=== PATIENT | male | born 1970 | race Caucasian/White ===

== ENCOUNTER 2023-03-02 12:30 | Emergency (ER) | payer BC, SELFPAY ==
[2023-03-02] VITALS (13 sets, daily range): BP systolic 113–123; BP diastolic 83–86; PULSE 68–123; RESP 20; TEMP 36.8; O2SAT 92–96; BMI 34.0
--- NOTE | 2023-03-02 13:53 | ED.GENADULT ---
HPI - General Adult General Time Seen by Provider: 13:53 Date Seen: 03/02/23 Chief complaint: Lower Extremity Swelling Stated complaint: Cellulitis, not responding to antibiotics Time Seen by Provider: 03/02/23 13:40 History of Present Illness HPI narrative: Corby is a 53-year-old male past medical history includes MRSA, hypertension, presents emerged department via private car with with left knee pain. Patient states he had an injury about 2 weeks ago, he went to [facility] on 02/21, he had a cortisone injection to his left knee, patient had no improvement with his symptoms, pain worsened on 02/23 as well as swelling, there was some redness to the area, he went back to [facility] last Monday, concerns for developing cellulitis from previous injection, patient was given IM Rocephin and sent home on Keflex, per patient the swelling is still present, redness has improved, patient's pain has not improved, he is taking oxycodone with minimal relief, he is unable to bear weight on that knee, patient denies any fevers or chills. At his visit at [facility] they never thought it was joint involved. Due to worsening symptoms patient presents emerged department. Related Data Home Medications Medication Instructions Recorded Confirmed albuterol sulfate 90 mcg/actuation inhalation 03/03/23 03/03/23 aerosol inhaler chlorthalidone 50 mg tablet mg PO 03/03/23 03/03/23 losartan 50 mg tablet 50 mg PO DAILY 03/03/23 03/03/23 meloxicam 15 mg tablet 15 mg PO DAILY 03/03/23 03/03/23 pravastatin 20 mg tablet 20 mg PO DAILY 03/03/23 03/03/23 trazodone 50 mg tablet 100 mg PO QPM PRN 03/03/23 03/03/23 Previous Rx's Medication Instructions Recorded doxycycline monohydrate 100 mg 100 mg PO BID #14 caps 03/02/23 capsule indomethacin 50 mg capsule 50 mg PO TID #45 caps 03/03/23 Allergies Allergy/AdvReac Type Severity Reaction Status Date / Time lisinopril AdvReac Severe Uncoded 03/03/23 09:48 Review of Systems Status of ROS: Reports: 10 or more systems reviewed and unremarkable except as noted in History and below [facility] Medical History (Updated 03/17/23 @ 00:01 by Background Daemon) Arthritis ?M19.90 - Unspecified osteoarthritis, unspecified site (ICD-10) Hypertension ?I10 - Essential (primary) hypertension (ICD-10) Sleep apnea treated with continuous positive airway pressure (CPAP) ?G47.30 - Sleep apnea, unspecified (ICD-10) Chronic neck and back pain ?M54.2 - Cervicalgia (ICD-10) ?M54.9 - Dorsalgia, unspecified (ICD-10) ?G89.29 - Other chronic pain (ICD-10) Social History Smoking Status: Never smoker Do you use any of these nicotine containing products: None Second hand tobacco smoke exposure: No How often do you have a drink containing alcohol: never How often do you have six or more drinks on one occasion: Never AUDIT-C Alcohol total score: 0 Non-prescribed substance use: denies use service: No Exam Narrative: Exam Narrative: General: Mild distress, lying comfortably HEENT: Pupils equal round reactive to light, extraocular muscles intact Lungs: Clear to auscultation bilaterally Heart: Normal sinus rhythm, S1-S2 Muscle skeletal: Left knee: Moderate suprapatellar effusion, no surrounding erythema, no warmth, minimal active extension and flexion, improved passive extension and flexion, CMS intact. Neuro: Alert awake and oriented x3 Const: Vital Signs, click to edit/add: Vital Signs - 24 hr 03/02/23 12:43 03/02/23 14:18 03/02/23 14:30 Temperature 98.3 F Pulse Rate 103 H 102 H Pulse Rate [Right Pulse Oximeter] 123 H Respiratory Rate 20 Blood Pressure Blood Pressure [Ri ght Upper Arm] 113/83 Pulse Oximetry 95 92 92 Oxygen Delivery Me thod Room Air 03/02/23 14:31 03/02/23 15:07 Temperature Pulse Rate 106 H 102 H Pulse Rate [Right Pulse Oximeter] Respiratory Rate Blood Pressure 123/86 Blood Pressure [Ri ght Upper Arm] Pulse Oximetry 92 92 Oxygen Delivery Me thod Course Course ED Course: 2:00 PM: AIDEt performed. Vitals show tachycardia, patient is afebrile, workup will include IV peripheral, 15 mg IV Toradol, 4 mg IV morphine for pain, will obtain CBC, CRP, CMP, lactate and blood cultures x2, as patient does have range of motion, he erythema has improved, seems less likely septic arthritis, may reach out to Orthopedics. Differential diagnosis include, septic arthritis, suprapatellar cellulitis, cellulitis, ligament injury, knee fusion, fracture, dislocation, as well as sprain. 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 CBC did show a leukocytosis, neutrophil # 9.2, CRP mildly elevated at 6.9, lactate normal at 1.5, blood cultures pending, metabolic panel showed sodium of 134, potassium 3.3, blood glucose 125, mildly elevated LFTs. Time of Reevaluation #2: 16:25 Reevaluation #2: Imaging: MPRESSION: 1. Anterior soft tissue swelling and trace knee joint effusion. 2. Degenerative changes of the knee with chondrocalcinosis. 3. Linear calcific densities along the superior patellar margin of uncertain chronicity. Appointment was made for orthopedics [place] tomorrow morning at 9:30 a.m.. Patient to be discharged with addition of doxycycline 100 mg b.i.d. over the next 7 days. Vital Signs Vital signs: Initial Vital Signs Temperature 98.3 F 03/02/23 12:43 Temperature Source Temporal Artery Scan 03/02/23 12:43 Pulse Rate 123 H 03/02/23 12:43 Pulse Rhythm Regular 03/02/23 12:43 Pulse Strength 3+ Normal 03/02/23 12:43 Respiratory Rate 20 03/02/23 12:43 Blood Pressure 113/83 03/02/23 12:43 Blood Pressure Mean 93 03/02/23 12:43 Blood Pressure Position Sitting 03/02/23 12:43 Pulse Oximetry 95 03/02/23 12:43 Oxygen Delivery Method Room Air 03/02/23 12:43 Vital Signs Temperature 98.3 F 03/02/23 12:43 Pulse Rate 123 H 03/02/23 12:43 Respiratory Rate 20 03/02/23 12:43 Blood Pressure 113/83 03/02/23 12:43 Pulse Oximetry 95 03/02/23 12:43 Oxygen Delivery Method Room Air 03/02/23 12:43 Temperature 98.3 F 03/02/23 12:43 Pulse Rate 68 03/02/23 18:00 Respiratory Rate 20 03/02/23 12:43 Blood Pressure 123/86 03/02/23 14:31 Pulse Oximetry 96 03/02/23 18:00 Oxygen Delivery Method Room Air 03/02/23 12:43 Medical Decision Making Lab Data Labs: Lab Results 03/02/23 Range/Units 14:05 WBC 12.89 H (4.50-11.00) K/uL RBC 5.69 (4.30-5.90) m/uL Hgb 15.8 (13.5-17.5) gm/dL Hct 47.5 (37.0-53.0) % MCV 84 (80-100) fL MCH 28 (26-34) pg MCHC 33 (32-36) gm/dL RDW Coeff of Dean 13.1 (11.5-15.5) % Plt Count 226 (140-440) K/uL Neut % (Auto) 71.1 (42.0-72.0) % Lymph % (Auto) 15.1 L (20-44) % [place] % (Auto) 12.2 H (0.0-11.0) % Eos % (Auto) 0.9 (0.0-7.0) % Baso % (Auto) 0.2 (0.0-3.0) % Neut # (Auto) 9.20 H (1.7-7.0) K/uL Lymph # (Auto) 1.90 (0.90-2.90) K/uL [place] # (Auto) 1.60 H (0.00-0.90) K/UL Eos # (Auto) 0.10 (0.00-0.50) K/uL Baso # (Auto) 0.00 (0.00-0.30) K/uL Abs Immat Gran (auto) 0.10 (0.00-0.30) K/uL Imm/Tot Granulo (auto) 0.5 % Sodium 134 L (135-149) mmol/L Potassium 3.3 L (3.6-5.1) mmol/L Chloride 93 L (96-114) mmol/L Carbon Dioxide 30 (20-32) mmol/L Anion Gap 11 (7-15) mEq/L BUN 19 (7-30) mg/dL Creatinine 0.7 (0.5-1.5) mg/dL Estimated Creat Clear 126.99 Estimated GFR 109 ml/min Glucose 125 H (60-115) mg/dL Lactate 1.5 (0.5-1.9) mmol/L Calcium 10.3 (8.4-10.6) mg/dL Total Bilirubin 1.2 (0.1-1.5) mg/dL AST 36 H (12-35) U/L ALT 61 H (4-50) U/L Alkaline Phosphatase 51 (40-150) U/L C-Reactive Protein 6.9 H (0.5-1.0) mg/dL Total Protein 8.1 (6.0-8.3) g/dL Albumin 4.5 (3.3-5.0) g/dL Discharge Plan Discharge Clinical Impression: Cellulitis of knee, left Patient Disposition: Home, Self-Care Condition: Improved Instructions: Cellulitis (ED) Additional Instructions: Add doxycycline 100 mg twice daily for the next 7 days, to follow up with Orthopedics tomorrow at 9:30 am. Return if worsening symptoms. Activity Level: Activity as Tolerated Discharge Diet: Regular Prescriptions: New doxycycline monohydrate 100 mg capsule 100 mg PO BID Qty: 14 0RF No Action losartan 50 mg tablet 50 mg PO DAILY meloxicam 15 mg tablet 15 mg PO DAILY trazodone 50 mg tablet 100 mg PO QPM PRN albuterol sulfate 90 mcg/actuation HFA aerosol inhaler inhalation pravastatin 20 mg tablet 20 mg PO DAILY chlorthalidone 50 mg tablet PO indomethacin 50 mg capsule 50 mg PO TID Qty: 45 0RF Rx Instructions: administer with food or milk Take for no more than 7-14 days Follow Up/Referrals: Provider,Not a Local [Primary Care Provider] - Stand Alone Forms: [employer] Info Instructions
[2023-03-02] MEDS: KETOROLAC 15 MG/ML inj IVP (14:10)
[2023-03-02] MEDS: MORPHINE 4 MG/ML INJ IVP (14:10)
[2023-03-02 14:20] LABS: Lactate* 1.5 mmol/L (0.5-1.9)
[2023-03-02 14:22] LABS: Basophils Percent Auto 0.2 % (0.0-3.0); Eosinophils Percent Auto 0.9 % (0.0-7.0); Hematocrit 47.5 % (37.0-53.0); Hemoglobin* 15.8 gm/dL (13.5-17.5); Immature Granulocytes Pct Auto 0.5 %; Lymphocytes Percent Auto 15.1 % (20-44); Mean Corpuscular HGB Conc 33 gm/dL (32-36); Mean Corpuscular Hemoglobin 28 pg (26-34); Mean Corpuscular Volume 84 fL (80-100); Monocytes Percent Auto 12.2 % (0.0-11.0); Neutrophils Percent Auto 71.1 % (42.0-72.0); Platelet Count* 226 K/uL (140-440); RDW Coefficient of Variation % 13.1 % (11.5-15.5); Red Blood Count 5.69 m/uL (4.30-5.90); White Blood Count* 12.89 K/uL (4.50-11.00)
[2023-03-02 14:24] LABS: Slide Review Reflex No
--- NOTE | 2023-03-02 14:29 | CRLHL7_ITS ---
For Patients: As a result of the Century Cures Act, medical imaging exams and procedure reports are released immediately into your electronic medical record. You may view this report before your referring provider. If you have questions, please contact your health care provider. INDICATION: Suprapatellar effusion, history of injection, pain. TECHNIQUE: Left knee 3 views. COMPARISON: None. FINDINGS: No acute fracture or dislocation. Mild medial compartment narrowing. Chondrocalcinosis in the medial and lateral compartments. Tricompartmental spurring. Linear calcific densities along the superior patellar margin of uncertain chronicity. Trace knee joint effusion. Anterior soft tissue swelling. IMPRESSION: 1. Anterior soft tissue swelling and trace knee joint effusion. 2. Degenerative changes of the knee with chondrocalcinosis. 3. Linear calcific densities along the superior patellar margin of uncertain chronicity. Dictated by Rut Cummings MD @ 03/02/2023 4:07:11 PM (Electronically Signed)
[2023-03-02 14:36] LABS: Albumin* 4.5 g/dL (3.3-5.0); Chloride* 93 mmol/L (96-114)
[2023-03-02 14:37] LABS: Potassium* 3.3 mmol/L (3.6-5.1); Sodium* 134 mmol/L (135-149)
[2023-03-02 14:39] LABS: Alkaline Phosphatase* 51 U/L (40-150); Anion Gap 11 mEq/L (7-15); Aspartate Amino Transferase* 36 U/L (12-35); Bilirubin Total* 1.2 mg/dL (0.1-1.5); Carbon Dioxide* 30 mmol/L (20-32); Creatinine* 0.7 mg/dL (0.5-1.5); Est. Creatinine Clearance* 126.99; Estimated Glomerular Filt Rate 109 ml/min; Total Protein* 8.1 g/dL (6.0-8.3)
[2023-03-02 14:40] LABS: Alanine Aminotransferase* 61 U/L (4-50); Blood Urea Nitrogen* 19 mg/dL (7-30); Calcium* 10.3 mg/dL (8.4-10.6); Glucose* 125 mg/dL (60-115)
[2023-03-02 14:42] LABS: C Reactive Protein* 6.9 mg/dL (0.5-1.0)
[2023-03-02] MEDS: DOXYCYCLINE HYCLATE 100 MG in 0.9 % SODIUM CHLORIDE Mini-bag 100 ML IVPB (16:18)
[2023-03-02] MEDS: 0.9 % SODIUM CHLORIDE 1000 ml 1,000 ML 1200 ML IV (17:18)
== END 2023-03-02 18:14 | disposition home or self-care (01) ==
PROVIDERS: Emergency Provider Student in an Organized Health Care Education/Training Program
DX: L03.116 Cellulitis of left lower limb (principal)
CPT/HCPCS: 36415; 73564; 80053; 83605; 85025; 86140; 87040; 96365; 96375; 99283; 99284; J1885; J2270; J7030

== ENCOUNTER 2023-03-03 11:16 | Outpatient (CLI) | payer BC, SELFPAY ==
[2023-03-03 13:45] LABS: Mononuclear WBC Body Fluid* 24 %; Polynuclear WBC Body Fluid* 76 %; RBC, Body Fluid* 17000 Cells/uL; WBC, Body Fluid* 9395 Cells/uL
[2023-03-03 13:50] LABS: BF Clarity* Cloudy; BF Color Blood Tinged; BF Total Volume* 10
== END 2023-03-03 11:17 | disposition home or self-care (01) ==
PROVIDERS: Visit Provider Physician Assistant
DX: L03.116 Cellulitis of left lower limb (principal)
CPT/HCPCS: 87070; 87075; 87205; 89051; 89060

== ENCOUNTER 2025-03-05 20:41 | Emergency (ER) | payer BC, SELFPAY ==
--- OUTSIDE RECORDS SUMMARY | 2025-03-05 20:43 | XMS_ITS | Clinical Summary ---
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 [facility] Allerg[facility] Active Allergy Reactions Criticality Noted Date Comments Bee Venom Edema,generalized 03/18/2015 Lisinopril Cough 03/26/2015 Medications ALBUterol sulfate HFA 108 (90 Base) MCG/ACT inhaler 2 Puffs every 4 hours as needed. 10/12/19 22 Active chlorthalidone (HYGROTON) 50 MG tablet Take by mouth. 07/26/19 22 Active Coenzyme Q10 30 MG capsule Take 1 Capsule (30 mg) by mouth. Active EPINEPHrine (EPIPEN) 0.3 MG/0.3ML injection Inject 0.3 mL (0.3 mg) intramuscularly at bedtime as needed. 07/26/19 22 Active losartan (COZAAR) 25 MG tablet Take 1 Tablet (25 mg) by mouth daily. 11/18/19 22 Active pravastatin (PRAVACHOL) 20 MG tablet Take 1 Tablet (20 mg) by mouth daily as needed. 11/18/19 22 Active traZODone (DESYREL) 50 MG tablet Take by mouth. 07/26/19 Active Meloxicam (MOBIC) 15 MG tabletIndicati ons:Arthralgia of right ankle TAKE 1 TABLET(15 MG) BY MOUTH DAILY 45 Tablet 01/24/20 Active oxyCODONE (ROXICODONE) 5 MG immediate release tablet Take 1 Tablet (5 mg) by mouth every 8 hours as needed for Pain. 10 Tablet 02/29/20 Active Active Problems Problem Noted Date Diagnosed Date Post-traumatic osteoarthritis of right shoulder 01/08/2022 History of repair of right rotator cuff 01/09/20 Complete tear of right rotator cuff 01/08/2022 Social History Tobacco Use Types Packs/Day Years Used Date Smoking Tobacco: Never Smokeless Tobacco: Never Tobacco Cessation:Counseling Given: Not Answered Sex and Gender Information Value Date Recorded Sex Assigned at Not on file Legal Sex Male 7:01 AM CDT Gender Identity Not on file Sexual Orientation Not on file Last Filed Vital Signs Vital Sign Reading Time Taken Comments Blood Pressure - - Pulse - - Temperature 35.8 C (96.4 F) 02/28/2023 9:12 AM CDT Respiratory Rate - - Oxygen Saturation - - Inhaled Oxygen Concentration - - Weight 117.5 kg (259 lb) 02/21/2023 4:29 PM CDT Height 180.3 cm (5' 11) 02/21/2023 4:29 PM CDT Body Mass Index 36.12 02/21/2023 4:29 PM CDT Plan of Treatment Health Maintenance Due Date Last Done Comments Colon Cancer Screening Plan Due 1968 Hep C Screening (Preventive Services) 1968 PSA Screening Discussion 1968 IPV (Polio) Vaccine (2 of 3 - 4-dose series) 04/10/1980 03/13/1980, 03/13/1980 HIV Screening (Preventive Services) 1984 Adult Preventive Visit 01/05/1986 HepB Vaccine (1) 01/05/1987 Cholesterol 01/05/2003 Pneumococcal Vaccine 50+ Yrs (1 of 1 - PCV) 01/05/2018 COVID-19 Vaccine (5 - 2024- season) 2025 03/21/2022, 06/03/2021, 09/25/2020, Additional history exists Influenza Vaccine (#1) 2025 1, 05/28/2020, 07/19/2018, Additional history exists DTaP/Tdap/Td Vaccine (4 - Tdap) 11/30/2030 11/30/2020, 05/18/2010, 06/19/2003 HepA Vaccine Aged Out 06/03/2016, 11/2015, 06/10/2015, Additional history exists No longer eligible based on patient's age to complete this topic Zoster/Shingles Vaccine Completed 05/28/2020, 02/02 Hib Vaccine Aged Out No longer eligi ble based on patient's age to complete this topic MCV4 Vaccine Aged Out No longer eligi ble based on patient's age to complete this topic Meningococcal B Vaccine Aged Out No l onger eligible based on patient's age to complete this topic Insurance [facility] Care Teams Grain Roaster Relationship Specialty Start Date End Date Unassigned, Provider [address] [place] [address] PCP - General 03/20/00
--- OUTSIDE RECORDS SUMMARY | 2025-03-05 20:43 | XMS_ITS | Clinical Summary ---
Author Organization [email or web address] Address [address] [place] [id number] Care Team Providers Care Manager Of Development Name Role Phone Rut Murdock MD Primary Care Provider [phone] Allergies Active Allergy Reactions Criticality Noted Date Comments Lisinopril Cough 03/26/2015 Venom-Honey Bee Edema 03/18/2015 Medications cholecalcifero l 400 unit tablet Take 10 mcg by mouth once daily. Active aspirin 81 mg enteric coated tablet Take 81 mg by mouth two times daily. 3 Active coenzyme q10 30 mg capsule Take 30 mg by mouth once daily. Active zinc gluconate 50 mg tablet Take 50 mg by mouth WITH BREAKFAST. Active traZODone 50 mg tabletIndicati ons:Insomnia, idiopathic Take 0.5-1 Tablets (25-50 mg) by mouth at bedtime if needed for Sleep. 90 Tablet 3 5 Active pravastatin 20 mg tabletIndicati ons:HTN (hypertension) Take 1 Tablet (20 mg) by mouth at bedtime. 90 Tablet 3 5 Active meloxicam 15 mg tabletIndicati ons:Pseudogout Take 1 Tablet (15 mg) by mouth once daily. 90 Tablet 3 5 Active losartan 50 mg tabletIndicati ons:HTN (hypertension) Take 1 Tablet (50 mg) by mouth once daily. 90 Tablet 3 5 Active EPINEPHrine 0.3 mg/0.3 mL auto-injectorI ndications:Bee sting allergy Inject 0.3 mg intramuscular one time if needed for Allergic Reaction. 2 Each 5 Active colchicine 0.6 mg tabletIndicati ons:Pseudogout Take 1 Tablet (0.6 mg) by mouth two times daily. 180 Tablet 3 5 Active albuterol HFA 90 mcg/actuation inhalerIndicat ions:Bronchiti s Inhale 2 Puffs by mouth every 4 hours if needed for Wheezing. 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 0 12/20/2007 SPINAL STENOSIS subarticular right L4-5 12/20/19 08 Immunizations Immunization Administration Dates Next Due DT (Age < 7 years) 06/19/2003 HepA-HepB (Twinrix) 06/03/2016, 6,06/10/2015,2014 INFLUENZA, IIV3 PF (AGE >= 6 MO) 06/13/2024 Inactivated Polio Vaccine 03/13/1980 Influenza Virus, Unspecified 06/03/2016, 04/15/2008,04/11/2008,2005 Influenza, IIV3 (Age >=3 years) 04/11/2008,05/24 Influenza, IIV4 04/03/2023, 1,05/28/2020,2018,05/31/2017,06/03/2016 Pneumococcal Conj 20-valent (Prevnar 20) 06/13/2024 Polio Virus, Unspecified 03/13/1980 Tdap 11/30/2020,05/18/2010 Typhoid (injectable) 06/03/2015 Typhoid Parenteral,Killed 06/03/2015 Zoster (Shingrix-RZV, recombinant) 05/28/2020, Social History Tobacco Use Types Packs/Day Years Used Date Smoking Tobacco: Never Smokeless Tobacco: Never Tobacco Cessation:Counseling Given: Not Answered Alcohol Use Standard Drinks/Week Comments No 0 (1 standard drink = 0.6 oz pur e alcohol) PHQ-2 Answer Date Recorded PHQ-2 TOTAL SCORE 0 09/10/2024 Social Connections Answer Date Recorded Do you often feel lonely or isolated from those around you? 0 09/10/2024 Financial Resource Strain Answer Date R ecorded Difficulty of Paying Living Expenses 3 09/10/2024 Difficulty of Paying Living Expenses Not on file 09/10/2024 Food Insecurity Answer Date Recorded Do you worry your food will run out before you are able to buy more? 1 09/10/2024 Transportation Needs Answer Date Record ed Does lack of transportation keep you from medica l appointments? 1 09/10/2024 Does lack of transportation keep you from work, meetings or getting things that you need? 1 09/10/2024 Housing Stability Answer Date Recorded What is your housing situation today? 1 09/10/2024 Utilities Answer Date Recorded Do you have trouble paying f or utilities (for example, heat, electricity, water, phone)? 1 09/10/2024 Sex and Gender Information Value Date Recorded Sex Assigned at Not on file Legal Sex Male 6:13 AM [employer] Gender Identity Not on file Sexual Orientation Not on file Obstetrics History Last Filed Vital Signs Vital Sign Reading Time Taken Comments Blood Pressure 144/82 09/10/2024 9:17 AM CDT Pulse 80 09/10/2024 9:12 AM CDT Temperature 37.1 C (98.7 F) 02/03/2010 4:05 PM CDT Respiratory Rate 16 12/27/2007 8:00 AM CDT Oxygen Saturation 94% 12/27/2007 8:00 AM CDT Inhaled Oxygen Concentration - - Weight 105.2 kg (232 lb) 09/10/2024 9:12 AM CDT Height 177.8 cm (5' 10) 09/10/2024 9:12 AM CDT Body Mass Index 33.29 09/10/2024 9:12 AM CDT Plan of Treatment Health Maintenance Due Date Last Done Comments HIV for age 15-65 01/05/1983 Hepatitis C screening for ag e 18-79 01/05/1986 COVID-19 vaccine series ( season) 2025 03/21/2022, 06/03/2021, 09/25/2020, Additional history exists Influenza Vaccine (#1) 2025 , 04/03/2023, 06/03/2021, Additional history exists BMI (ht and wt on same day) for age 18+ 09/10/2025 09/10/2024 Depression screening for age 12+ 09/10/2025 09/11/19 Fecal testing sDNA-FIT ([place] guard) for age 45-75 09/21/2027 09/20/2024, 08/30/2021, 12/04/2018 Lipids for age 45-75 09/10/2029 09/10/2024 Tetanus booster 11/30/2030 11/30/2020, 05/18/2010 RSV vaccine for adults or (1 - 1-dose 75+ series) 01/05/2043 Hepatitis B series for 19+ Completed 06/03, 06/24/2015, 06/10/2015, Additional history exists Zoster (shingles) series for age 50+ Completed 05/28/2020, 02/03/2020 Pneumococcal series for age 50+ Completed Procedures Procedure Name Priority Date/Time Associated Diagnosis Comments SDNA-FIT EXTERNAL (COLOGUARD) Routine 09/20/2024 7:30 AM CDT Screening for colon cancer LIPID PANEL W REFLEX MEASURED LDL Routine 09/10/2024 10:16 AM CDT HTN (hypertension) Well adult exam from Last 3 Months or Most Recently Relevant to Health Maintenance Results * SDNA-FIT EXTERNAL (COLOGUARD) (09/20/2024 7:30 AM CDT) NONINV COLON CA DNA+OCC BLD SCRN STL-IMP Negative Negative 09/24/2024 4:25 AM CDT [facility] (CLIA #:[id number]) Comment: NEGATIVE TEST RESULT. A negative Cologuard result indicates a low likelihood that a colorectal cancer (CRC) or advanced adenoma (adenomatous polyps with more advanced pre-malignant features) is present. The chance that a person with a negative Cologuard test has a colorectal cancer is less than 1 in 1500 (negative predictive value >99.9%) or has an advanced adenoma is less than 5.3% (negative predictive value 94.7%). These data are based on a prospective cross-sectional study of 10,000 individuals at average risk for colorectal cancer who were screened with both Cologuard and colonoscopy. (Merced Lombardi al, N Engl J Med 2014;370(14):0753-5877) The normal value (reference range) for this assay is negative. COLOGUARD RE-SCREENING RECOMMENDATION: Periodic colorectal cancer screening is an important part of preventive healthcare for asymptomatic individuals at average risk for colorectal cancer. Following a negative Cologuard result, the [place] [employer] and U.S. Multi-Society Task Force screening guidelines recommend a Cologuard re-screening interval of 3 years. References: [place] [employer] Guideline for Colorectal Cancer Screening: https://www.cancer.org/cancer/jyfjm-bdfidq-rbfzzv/qcjwqhjkb-vmkaahyld-uvctlwr/ac s-rec ommendations.html.; Rajat LANDRY, Catarino SINHA, Ellie OseiK, Colorectal Cancer Screening: Recommendations for Physicians and Patients from the U.S. Multi-Society Task Force on Colorectal Cancer Screening , Am J Gastroenterology 2017; 112:9530-7504. TEST DESCRIPTION: Composite algorithmic analysis of stool DNA-biomarkers with hemoglobin immunoassay. Quantitative values of individual biomarkers are not reportable and are not associated with individual biomarker result reference ranges. Cologuard is intended for colorectal cancer screening of adults of either sex, 45 years or older, who are at average-risk for colorectal cancer (CRC). Cologuard has been approved for use by the U.S. FDA. The performance of Cologuard was established in a cross sectional study of average-risk adults aged 50-84. Cologuard performance in patients ages 45 to 49 years was estimated by sub-group analysis of near-age groups. Colonoscopies performed for a positive result may find as the most clinically significant lesion: colorectal cancer [4.0%], advanced adenoma (including sessile serrated polyps greater than or equal to 1cm diameter) [20%] or non- advanced adenoma [31%]; or no colorectal neoplasia [45%]. These estimates are derived from a prospective cross-sectional screening study of 10,000 individuals at average risk for colorectal cancer who were screened with both Cologuard and colonoscopy. (Merced Bai, N Engl J Med 2014;370(14):4729-4342.) Cologuard may produce a false negative or false positive result (no colorectal cancer or precancerous polyp present at colonoscopy follow up). A negative Cologuard test result does not guarantee the absence of CRC or advanced adenoma (pre-cancer). The current Cologuard screening interval is every 3 years. ([place] [employer] and U.S. Multi-Society Task Force). Cologuard performance data in a 10,000 patient pivotal study using colonoscopy as the reference method can be accessed at the following location: www.[employer]/results. Additional description of the Cologuard test process, warnings and precautions can be found at www.[employer]. Stool specimen (specimen) (Rectum) 09/20/2024 7:30 AM CDT 09/21/2024 10:13 AM CDT us Ronny Cervantes MD URINE Final R esult [facility] (CLIA #:[id number]) [address] [place] [address], * (ABNORMAL) LIPID PANEL W REFLEX MEASURED LDL (09/10/2024 10:16 AM CDT) CHOLESTEROL, TOTAL 194 <200 mg/dL [facility] HDL CHOLESTEROL 48 > OR = 40 mg/dL [facility] TRIGLYCERIDES 138 <150 mg/dL [facility] LDL-CHOLESTEROL 120(H) mg/dL (calc) [facility] Comment: Reference range: <100 Desirable range <100 mg/dL for primary prevention; <70 mg/dL for patients with CHD or diabetic patients with > or = 2 CHD risk factors. LDL-C is now calculated using the John calculation, which is a validated novel method providing better accuracy than the Friedewald equation in the estimation of LDL-C. Akira RUIZ et al. PATRICIA. 2013;310(19): 3430-2969 (http://education.[employer]/faq/BEL770) CHOL/HDLC RATIO 4.0 <5.0 (calc) [facility] NON HDL CHOLESTEROL 146(H) <130 mg/dL (calc) [facility] Comment: For patients with diabetes plus 1 major ASCVD risk factor, treating to a non-HDL-C goal of <100 mg/dL (LDL-C of <70 mg/dL) is considered a therapeutic option. Blood BLOOD SPECIMEN / Unknown 09/10/2024 10:16 AM CDT 09/10/2024 10:17 AM CDT us Ronny Cervantes MD CHEMISTRY Final R esult [employer] [facility] [address] [place] [address], [facility] [address] [place] [address] from Last 3 Months or Most Recently Relevant to Health Maintenance Insurance [facility] Advance Directives * Full Code (Latest Code Status on File) Date Activated Date Inactivated Comments 12/26/2007 9:58 AM 12/26/2007 5:03 PM Care Teams Manager Of Development Relationship Specialty Start Date End Date Rut Murdock MD PCP - General 12/04/07
[2025-03-05 20:45] VITALS: BP 171/90; PULSE 81; RESP 16; TEMP 36.7; O2SAT 98; BMI 30.5
[2025-03-05] MEDS: LIDOCAINE 1 % PF 30 ML INJECTION (21:20)
--- NOTE | 2025-03-05 21:20 | ED.WOUNDLAC ---
HPI - Wound/Laceration General Chief Complaint: Laceration/Wound Stated Complaint: leg injury due to chainsaw Time Seen by Provider: 03/05/25 21:18 History of Present Illness HPI narrative: This 55-year-old male comes in with a laceration on his left lower leg. He was using a chain saw of about 2 or 3 hours prior to arrival in the blade accidentally cut into his leg. He has a 6 cm linear laceration on the anterior lateral aspect of his lower leg about 10 cm above the ankle joint. His tetanus status is up-to-date. Related Data Home Medications ?Medication ?Instructions ?Recorded ?Confirmed albuterol sulfate 90 mcg/actuation inhalation 03/03/23 03/03/23 aerosol inhaler chlorthalidone 50 mg tablet mg PO 03/03/23 03/03/23 losartan 50 mg tablet 50 mg PO DAILY 03/03/23 03/05/25 meloxicam 15 mg tablet 15 mg PO DAILY 03/03/23 03/05/25 pravastatin 20 mg tablet 20 mg PO DAILY 03/03/23 03/05/25 trazodone 50 mg tablet 100 mg PO QPM PRN 03/03/23 03/05/25 colchicine 0.6 mg tablet mg PO 03/05/25 Previous Rx's ?Medication ?Instructions ?Recorded doxycycline monohydrate 100 mg 100 mg PO BID #14 caps 03/02/23 capsule indomethacin 50 mg capsule 50 mg PO TID #45 caps 03/03/23 Allergies Allergy/AdvReac Type Severity Reaction Status Date / Time bee vebom Allergy Uncoded 03/05/25 20:47 lisinopril AdvReac Severe Uncoded 03/03/23 09:48 Review of Systems Status of ROS: Reports: 10 or more systems reviewed and unremarkable except as noted in History and below Narrative: Constitutional: No fevers, no weight gain or loss. Eyes: No discharge. No vision changes. HENT: No congestion, no sore throat, no ear pain. Cardiovascular: No chest pain, no palpitations. Respiratory: No shortness of breath, no wheezes, no cough. Gastrointestinal: No abdominal pain, no vomiting, no diarrhea. Genitourinary: No dysuria, no hematuria. Musculoskeletal: Normal range of motion. Skin: No rashes, no pruritis. Neurological: No dizziness, weakness, sensory change, speech change. Endo/Heme/Allergies: No bruising or bleeding. No polydipsia. Pysch: no suicidality, no anxiety, no insomnia. All other systems reviewed and are negative. [facility] Medical History (Updated 03/05/25 @ 21:23 by Neymar Navarro MD) Arthritis ?M19.90 - Unspecified osteoarthritis, unspecified site (ICD-10) Hypertension ?I10 - Essential (primary) hypertension (ICD-10) Sleep apnea treated with continuous positive airway pressure (CPAP) ?G47.30 - Sleep apnea, unspecified (ICD-10) Chronic neck and back pain ?M54.2 - Cervicalgia (ICD-10) ?M54.9 - Dorsalgia, unspecified (ICD-10) ?G89.29 - Other chronic pain (ICD-10) Social History Smoking Status: Never smoker Do you use any of these nicotine containing products: None Second hand tobacco smoke exposure: No How often do you have a drink containing alcohol: never How often do you have six or more drinks on one occasion: Never AUDIT-C Alcohol total score: 0 Non-prescribed substance use: denies use service: No Exam Narrative: Exam Narrative: Constitutional: Well-developed, well-nourished, no acute distress. HEENT: Normocephalic, atraumatic. Neck: Normal range of motion. Nontender. Supple. Heart: Regular. No murmurs. Normal rate. Intact distal pulses. Lungs: Clear to auscultation. No chest discomfort. No wheezes, rhonchi, or rales. Abdomen: Normal bowel sounds. Nontender. No rebound tenderness. Genitalia: Deferred. Back: No midline tenderness. Normal range of motion. Extremities: Normal range of motion. 6 cm linear laceration on the left lower extremity as described above. Skin: Intact. No rash. Warm. No erythema or pallor. Neurologic: No altered sensation. No weakness. Alert and oriented. Psychiatric: No suicidality. No anxiety or depression. No insomnia. Nursing notes and vitals signs are reviewed. Const: Vital Signs, click to edit/add: Vital Signs - 24 hr 03/05/25 20:45 Temperature 98.0 F Pulse Rate [Pulse Oximeter] 81 Respiratory Rate 16 Blood Pressure [Le ft Upper Arm] 171/90 H Pulse Oximetry 98 Oxygen Delivery Me thod Room Air Course Vital Signs Vital signs: Initial Vital Signs Temperature 98.0 F 03/05/25 20:45 Temperature Source Temporal Artery Scan 03/05/25 20:45 Pulse Rate 81 03/05/25 20:45 Respiratory Rate 16 03/05/25 20:45 Blood Pressure 171/90 H 03/05/25 20:45 Blood Pressure Mean 117 H 03/05/25 20:45 Blood Pressure Position Sitting 03/05/25 20:45 Pulse Oximetry 98 03/05/25 20:45 Oxygen Delivery Method Room Air 03/05/25 20:45 Vital Signs Temperature 98.0 F 03/05/25 20:45 Pulse Rate 81 03/05/25 20:45 Respiratory Rate 16 03/05/25 20:45 Blood Pressure 171/90 H 03/05/25 20:45 Pulse Oximetry 98 03/05/25 20:45 Oxygen Delivery Method Room Air 03/05/25 20:45 Temperature 98.0 F 03/05/25 20:45 Pulse Rate 81 03/05/25 20:45 Respiratory Rate 16 03/05/25 20:45 Blood Pressure 171/90 H 03/05/25 20:45 Pulse Oximetry 98 03/05/25 20:45 Oxygen Delivery Method Room Air 03/05/25 20:45 MDM - Wound/Laceration MDM Narrative Medical decision making narrative: This patient has a laceration that would benefit from suture repair. After anesthesia with 1% lidocaine the wound was cleansed with normal saline. It was a also explored to its base. There is no tendon or ligament involvement. Wound edges were approximated and the wound was closed with 4.0 Ethilon sutures. Seven sutures were placed in interrupted fashion. Instructions were given regarding wound care and the need for suture removal in 7-10 days. Discharge Plan Discharge Clinical Impression: Laceration Patient Disposition: Home, Self-Care Condition: Improved Additional Instructions: Keep wound clean and dry. Follow-up with urgent care clinic in 7-10 days for suture removal. Return if worsening. Prescriptions: No Action losartan 50 mg tablet 50 mg PO DAILY meloxicam 15 mg tablet 15 mg PO DAILY trazodone 50 mg tablet 100 mg PO QPM PRN albuterol sulfate 90 mcg/actuation HFA aerosol inhaler inhalation pravastatin 20 mg tablet 20 mg PO DAILY chlorthalidone 50 mg tablet PO indomethacin 50 mg capsule 50 mg PO TID Qty: 45 0RF Rx Instructions: administer with food or milk Take for no more than 7-14 days colchicine 0.6 mg tablet PO doxycycline monohydrate 100 mg capsule 100 mg PO BID Qty: 14 0RF Follow Up/Referrals: Provider,Not a Local [Primary Care Provider, Family Practice] Stand Alone Forms: MyHealth Info Instructions
[2025-03-05 21:37] VITALS: BP 165/80; PULSE 79; RESP 16; TEMP 36.7; O2SAT 98
== END 2025-03-05 21:42 | disposition home or self-care (01) ==
LOC: ED 21:41
PROVIDERS: Emergency Provider Emergency Medicine Emergency Medical Services
DX: S81.812A Laceration without foreign body, left lower leg, initial encounter (principal); W29.3XXA Contact with powered garden and outdoor hand tools and machinery, initial encounter
CPT/HCPCS: 12002; 99283; 99284; J2003